=== PATIENT | female | born 1985 | race Caucasian/White ===

== ENCOUNTER 2016-10-24 12:30 | Day surgery (SDC) | payer OTHER ==
[~2016-10-24 12:30] MED LIST: BENZ29.52 TP; CLIN60SO2 TOP
== END 2016-10-24 23:59 | disposition home or self-care (01) ==
LOC: MOCO 12:30
PROVIDERS: ATTEND Internal Medicine Gastroenterology
DX: R93.5 Abnormal findings on diagnostic imaging of other abdominal regions, including retroperitoneum (principal); R94.5 Abnormal results of liver function studies; R76.8 Other specified abnormal immunological findings in serum; B19.20 Unspecified viral hepatitis C without hepatic coma

== ENCOUNTER 2017-04-04 09:48 | Day surgery (SDC) | payer OTHER ==
--- NOTE | 2017-04-04 11:23 | NUR ---
Labs Patient arrived to unit. IVT here to draw blood.
== END 2017-04-04 23:59 | disposition home or self-care (01) ==
LOC: MOCO 09:48
PROVIDERS: ATTEND Internal Medicine Gastroenterology
DX: B19.20 Unspecified viral hepatitis C without hepatic coma (principal)